=== PATIENT | male | born 1970 | race African-American/Black ===

== ENCOUNTER 2024-01-27 11:09 | Emergency (ER) | payer OTHER, SELFPAY ==
[2024-01-27 11:13] VITALS: BP 175/109
[2024-01-27 12:05] VITALS: BP 157/90
[2024-01-27 12:50] LABS: % Basophils 0.4 % (0-2); % Eosinophils 2.6 % (0-6); % Immature Granulocytes 0.4 % (0-0.5); % Lymphocytes 31.4 % (20.5-51.1); % Monocytes 6.2 % (1.7-9.3); Absolute Eosinophils 0.2 10^3/uL (0-0.7); Absolute Lymphocytes 2.3 10^3/uL (1.2-3.4); Absolute Monocytes 0.5 10^3/uL (0.1-0.6); Absolute Neutrophils 4.4 10^3/uL (1.4-6.5); Hematocrit 40.6 % (39.0-52.0); Hemoglobin 13.5 g/dL (13.0-18.0); Mean Corp Hgb Conc. 33.3 g/dL (33.0-37.0); Mean Corpuscular Hgb 26.6 pg (27.0-31.0); Mean Corpuscular Volume 79.9 fL (80.0-94.0); Mean Platelet Volume 10.8 fL (7.4-10.4); Nucleated Red Blood Cells % 0 % (-); Platelet Count 272 10^3/uL (130-400); Red Blood Cell Count 5.08 10^6/uL (4.70-6.10); Red Cell Dist. Width 13.6 % (11.5-14.5); White Blood Cell Count 7.4 10^3/uL (4.8-10.8)
[2024-01-27 13:08] LABS: ALT (SGPT) 13 U/L (0-50); AST (SGOT) 17 U/L (17-59); Albumin 4.1 g/dl (3.5-5.0); Alkaline Phosphatase 77 U/L (38-126); Blood Urea Nitrogen 9 mg/dl (9-20); Carbon Dioxide 31 mmol/L (22-30); Chloride 102 mmol/L (98-107); Glucose 119 mg/dl (70-99); Sodium 137 mmol/L (135-145); Total Bilirubin 0.3 mg/dl (0.2-1.3); Total Protein 7.2 g/dl (6.3-8.2); eGFR > 60.00
--- NOTE | 2024-01-27 13:13 | ED.GENMED ---
History of Present Illness
General
Chief Complaint: Blood Pressure Problem
Source: patient
Time Seen by Provider: 01/27/24 12:17
History of Present Illness
History of Present Illness:
53-year-old male with past medical history of hypertension and type 2 diabetes presenting to the ER from [facility] for evaluation after he was found to have significantly elevated blood pressure during medical screening and
reportedly abnormal EKG so sent to the ER for further evaluation. Patient has no symptoms and feels well at this time stating he is only upset that he missed lunch and is requesting something to eat. Patient takes amlodipine and lisinopril daily
and metformin as well. He does report that he has been getting this medication while incarcerated. Patient has no known history of coronary artery disease. He does admit to smoking 1 pack/day.
Past History
Past History
ED Past Medical History: HTN and NIDDM
ED Past Surgical History: None
Social History
Tobacco: Smoker
Alcohol: None
Drug: None
Personal: Single
Living: [facility]
Review of Systems
Review of Systems
All Other Systems: ROS reviewed and negative except as documented in HPI and ROS
Phy Exam
Physical Exam
Physical Exam:
GENERAL: Alert , in no apparent distress
EYE: conjunctiva clear
NECK: Supple
ENT: o/p clr, mmm.
CARDIAC: Regular rate and rhythm, occasional ectopic beat correlates with PAC on telemetry
LUNGS: Clear breath sounds bilaterally, no acute respiratory distress, no wheezes/rales/rhonchi
NEUROLOGICAL: Alert and oriented
SKIN: Warm and dry, skin intact.
MUSCULOSKELETAL: well perfused.
PSYCH: Normal and appropriate interaction.
Scores
Heart Failure Risk
Heart Failure Risk Score: Not Applicable
Heart Score for Chest Pain Patients
STEMI patient?: No
History: Slightly or Non-Suspicious
ECG: Nonspecific Repolarization
Age: >45 - <65 years
Risk Factors: 1 or 2 Risk Factors
Troponin: </= Normal Limit
Heart Score for Chest Pain Patients: 3
Heart Score Risk: 2.5% MACE over next 6 weeks
Withdrawal Assessment of Alcohol
Withdrawal Assessment Completed?: Not applicable
Course
Orders/Labs/Results
Orders:
Orders
01/27/24 11:11
EKG [Electrocardiogram (*1)] Urgent
Reason for Study: Abnormal EKG
EKG- Treatment ONCE
01/27/24 12:39
Complete Blood Count/With Diff Urgent
Comprehensive Metabolic Panel Urgent
Troponin I Urgent
Abnormal Lab Results
01/27/24
12:39
MCV 79.9 L fL
(80.0-94.0)
MCH 26.6 L pg
(27.0-31.0)
MPV 10.8 H fL
(7.4-10.4)
Carbon Dioxide 31 H mmol/L
(22-30)
Glucose 119 H mg/dl
(70-99)
01/27/24 12:39
01/27/24 12:39
Vital Signs
Initial and Last Documented VS:
Initial Vital Signs
Temp Pulse Resp BP Pulse Ox
98.3 F 74 16 175/109 99
01/27/24 11:13 01/27/24 11:13 01/27/24 11:13 01/27/24 11:13 01/27/24 11:13
Last Documented Vital Signs
Temp Pulse Resp BP Pulse Ox
98.3 F 61 16 148/92 97
01/27/24 11:13 01/27/24 12:05 01/27/24 11:13 01/27/24 13:34 01/27/24 12:05
MDM/Problems Addressed
Differential Diagnosis Includes:
Asymptomatic hypertension, hypertensive urgency, underlying CAD
MDM/Problems Addressed:
53-year-old male with past medical history of hypertension and type 2 diabetes presenting to the ER for evaluation after he had elevated blood pressure during medical screening while at [facility]. Patient reports that he is new there
which is why he was getting the medical screening. He has no symptoms at this time. EKG done here shows normal sinus rhythm at a rate of 67 bpm with PACs. There is left axis deviation and flipped T waves in V5 and V6 as well as lead III and aVF.
No previous EKG on record to compare to. Patient asymptomatic at this time but will check labs including troponin. If unremarkable will consult with medical at [facility] to ensure close cardiology follow-up.
Chronic conditions affecting care: DM and HTN
*Pulse Oximetry
Patient hypoxic: no
*EKG
Interpreted by ED Provider?: Yes
Heart Rate: 67
Rate: normal
Rhythm: sinus and PAC's
[place]: left axis deviation
Ischemia: T-wave inversion (V5 through V6 leads III and aVF)
*Combine Inspector Interpretation
Rate: normal
Rhythm: sinus and PAC's
*Critical Care Note
Total Time (30-74mins, 75-104mins- exclusive of procedures): Not Applicable
Patient Management
Discussion with other providers: Long Term staff
Escalation/DeEscalation of care consider admission/obs:
Patient's labs reassuring. Negative troponin and otherwise unremarkable hematology and chemistry. Patient remains asymptomatic and blood pressure slightly elevated albeit much improved from initial as well as while he was at the medical facility
at [facility]. I contacted nursing and spoke with Janiya who states that they would be able to arrange for patient to have an outpatient cardiac work. Aware of return precautions to the ER but otherwise medically cleared for
incarceration.
ED Attending Note
-
Portions of this chart may have been created with voice recognition software.� Occasional wrong word or��sound alike� substitutions may have occurred due to the inherent limitations of voice recognition software.
Discharge Plan
Departure
Patient Disposition: Home (Routine Discharge)
Date of Disposition: 01/27/24
Time of Disposition: 13:30
Patient with high blood pressure during this ER visit?: Yes
Discharge Problem:
Hypertension
Instructions: High Blood Pressure (DC)
Prescriptions:
No Action
Theragen Tablet
1 tab PO DAILY
amlodipine [Norvasc] 10 mg Tablet
10 mg PO DAILY
metformin 1,000 mg Tablet
1,000 mg PO DAILY
lisinopril 10 mg Tablet
10 mg PO DAILY
Referrals:
[facility] [Family Provider] -
Vic Riggs MD [Active] - (Cardiology)
Activity Restrictions/Additional Instructions:
Patient is medically cleared for incarceration
Interventions
Interventions:
*Risk Screen - Suicide Last Done: 01/27/24 11:13
*General Assessment Last Done: 01/27/24 11:13
*Neglect/Abuse Screening Last Done: 01/27/24 11:13
ED- Fall Risk Assessment Last Done: 01/27/24 11:25
*ED COVID-19 Vaccine History Last Done: 01/27/24 11:13
*Nursing Disposition Last Done: 01/27/24 13:38
ED- Cardiac Assessment Last Done: 01/27/24 11:25
ED- Neurological Assessment Last Done: 01/27/24 11:25
ED- Pulmonary Assessment Last Done: 01/27/24 11:25
Discharge Date and Time
Discharge Date/Time: 01/27/24 13:38
Print Language: NIGERIEN
[2024-01-27 13:16] LABS: Troponin I < 0.012 ng/ml
[2024-01-27 13:34] VITALS: BP 148/92
== END 2024-01-27 13:38 | disposition home or self-care (01) ==
LOC: EMR 11:09
PROVIDERS: Physician Assistant Medical; EMERGENCY PHYSICIAN Emergency Medicine
DX: I10 Essential (primary) hypertension (principal); E11.9 Type 2 diabetes mellitus without complications; F17.210 Nicotine dependence, cigarettes, uncomplicated; Z79.899 Other long term (current) drug therapy; Z79.84 Long term (current) use of oral hypoglycemic drugs
CPT/HCPCS: 99283; 80053; 84484; 85025; 93005